=== PATIENT | female | born 1965 | race Hispanic/Latino ===

== ENCOUNTER 2022-06-18 06:53 | Day surgery (SDC) | payer OTHER ==
[2022-06-13 13:06] LABS: BASOPHILS % (AUTO) 0.7 % (0.0-5.0); EOSINOPHILS % (AUTO) 2.2 % (0.0-8.0); HEMATOCRIT 39.3 % (36-48); LYMPHOCYTES % (AUTO) 21.4 % (21.0-51.0); MEAN CORPUSCULAR HEMOGLOBIN 33.3 pg (27.0-33.0); MEAN CORPUSCULAR HGB CONC 32.1 g/dL (32.0-36.0); MONOCYTES % (AUTO) 5.9 % (3.0-13.0); NEUTROPHILS % (AUTO) 69.5 % (40.0-77.0); PLATELET COUNT (AUTO) 205 K/uL (130-400); RED BLOOD CELL COUNT(AUTO) 3.78 MIL/uL (4.00-5.50); RED CELL DISTRIBUTION WIDTH 13.2 % (11.0-15.5); WHITE BLOOD COUNT (AUTO) 7.2 K/uL (4.8-10.8)
[2022-06-13 13:15] LABS: CREATININE 4.8 mg/dL (0.5-1.5); POTASSIUM 4.7 mmol/L (3.5-5.1); PROTHROMBIN TIME 10.9 SEC (9.6-11.6)
[2022-06-13 13:17] LABS: PARTIAL THROMBOPLASTIN TIME 30.2 SEC (26.3-35.5)
[2022-06-13 13:31] LABS: B-TYPE NATRIURETIC PEPTIDE 739 pg/mL (0-100)
[2022-06-14 10:09] VITALS: BP 106/60
[2022-06-18] VITALS (9 sets, daily range): BP systolic 140–169; BP diastolic 65–83
[~2022-06-18] VITALS: Ht 154.9 cm; Wt 94.9 kg
[~2022-06-18 06:53] MED LIST: APIX5TAB PO; ATOR40TA71 PO; HYDR-3420 PO; INSU100I21 SQ; INSU100I3 SQ; METO-391 PO; MINO2.5T3 PO
[2022-06-18] MEDS ORDERED: IODIXANOL 320 MG/ML 100 ML VIAL ONE (09:07)
[2022-06-18] MEDS ORDERED: FENTANYL CITRATE PF 50 MCG/1 ML 2ML VIAL ONE (09:07)
[2022-06-18] MEDS ORDERED: HEPARIN 10,000 UNIT/10ML (1,000 UNIT/ML) VIAL ONE (09:07)
[2022-06-18] MEDS ORDERED: MIDAZOLAM HCL 1 MG/ML 2ML VIAL ONE (09:07)
[2022-06-18] MEDS ORDERED: LIDOCAINE HCL 1% 20 ML VIAL ONE (09:07)
[2022-06-18] MEDS ORDERED: HYDRALAZINE 20MG/ML VIAL ONE (09:58)
[2022-06-18] MEDS ORDERED: DEXTROSE 50%-WATER 50 ML DISP.SYRIN IV PRN (10:30)
[2022-06-18] MEDS ORDERED: GLUCAGON 1MG KIT 1 MG ML IM PRN (10:30)
== END 2022-06-18 15:15 | disposition home or self-care (01) ==
LOC: DAH 06:53
PROVIDERS: ATTEND Internal Medicine
DX: I70.213 Atherosclerosis of native arteries of extremities with intermittent claudication, bilateral legs (principal); I70.92 Chronic total occlusion of artery of the extremities; I12.0 Hypertensive chronic kidney disease with stage 5 chronic kidney disease or end stage renal disease; N18.6 End stage renal disease; I48.91 Unspecified atrial fibrillation; Z79.899 Other long term (current) drug therapy; Z79.01 Long term (current) use of anticoagulants
CPT/HCPCS: 80048; 83880; 84703; 85025; 85610; 85730; 87426; 36415; 71045; 93005; 75716; 36246; 82948 ×2; C1769 ×2; C1894 ×2; C1887; C1760; J3010; J0360; J1644 ×2; J2250; Q9967; A4215; A4222; A4221; A4663; A4216; A4606; A4223 ×3; 99156; 99157